=== PATIENT | male | born 1950 | race Caucasian/White ===

== ENCOUNTER 2022-03-24 09:07 | Outpatient (CLI) | payer MEDICARE, BC, SELFPAY ==
[2022-03-24 09:26] VITALS: BP 111/83; PULSE 65; RESP 18; TEMP 36.4; O2SAT 97
== END 2022-03-24 10:00 | disposition home or self-care (01) ==
LOC: INF 09:12
PROVIDERS: PCP Nurse Practitioner Family; Visit Provider Nurse Practitioner Family
DX: E78.5 Hyperlipidemia, unspecified (principal)
CPT/HCPCS: 96372; J1306

== ENCOUNTER 2022-09-28 13:01 | Outpatient (CLI) | payer MEDICARE, BC, SELFPAY ==
[2022-09-28 13:28] VITALS: BP 130/68; PULSE 77; RESP 18; TEMP 36.9; O2SAT 97
== END 2022-09-28 13:28 | disposition home or self-care (01) ==
LOC: INF 13:01
PROVIDERS: PCP Nurse Practitioner Family; Visit Provider Nurse Practitioner Family
DX: E78.5 Hyperlipidemia, unspecified (principal)
CPT/HCPCS: 96372; J1306

== ENCOUNTER 2023-03-31 12:43 | Outpatient (CLI) | payer MEDICARE, BC, SELFPAY ==
[2023-03-31] MEDS: INCLISIRAN SODIUM 284 MG/1.5 ML SYRINGE SQ (13:00)
[2023-03-31 13:05] VITALS: BP 119/59; PULSE 84; RESP 18; O2SAT 99
== END 2023-03-31 13:10 | disposition home or self-care (01) ==
LOC: INF 12:46
PROVIDERS: PCP Nurse Practitioner Family; Visit Provider Student in an Organized Health Care Education/Training Program
DX: E78.5 Hyperlipidemia, unspecified (principal)
CPT/HCPCS: 96372; J1306

== ENCOUNTER 2023-06-17 07:28 | Outpatient (CLI) | payer MEDICARE, BC, SELFPAY ==
--- NOTE | 2023-06-17 | CA_ITS ---
FINAL REPORT TECHNIQUE: Grayscale, color Doppler and duplex Doppler ultrasound of the kidneys, aorta and renal arteries was performed. Multiple velocities were measured. CLINICAL HISTORY: HTN,HLD,DM,CKD STAGE 3 COMPARISON: None FINDINGS: Aorta velocity: 91 cm/sec Right kidney: 13.6 cm. No evidence of hydronephrosis or mass. Right intrarenal RI: 0.73 Right renal artery velocity: 129 cm/sec. Right RAR (Renal artery-Aortic Ratio): 1.4 Left Kidney: 14.4 cm. No evidence of hydronephrosis or mass. Left intrarenal RI: 0.78 Left renal artery velocity: 153 cm/sec. Left RAR (Renal Artery-Aortic Ratio): 1.7 IMPRESSION: No evidence of significant renal artery stenosis. CT angiogram or postcontrast MR angiogram would be more sensitive for evaluation of possible renal artery stenosis. Reviewed, Interpreted and Dictated by Osmin Ziegler III, MD Transcribed by Sada Villanueva Authenticated and [facility]
--- NOTE | 2023-06-17 08:36 | US_ITS ---
FINAL REPORT CLINICAL HISTORY: BENIGN ESSESTIAL HYPRTENSION COMPARISON: None FINDINGS: RENAL ULTRASOUND: The right kidney measures 12.3 cm in length. There is no evidence of hydronephrosis or mass in the right kidney. The left kidney measures 13.6 cm in length. There is a hypoechoic focus measuring 1.1 cm in size that likely represents a renal cyst. There is a hyperechoic linear focus in the spleen, which may represent scar or calcification. IMPRESSION: 1.1 cm left renal cyst. Hyperechoic linear focus in the spleen, possibly scar or calcification. Reviewed, Interpreted and Dictated by Osmin Ziegler III, MD Transcribed by Sada Villanueva Authenticated and [facility]
== END 2023-06-17 23:59 | disposition home or self-care (01) ==
LOC: RT 07:29
PROVIDERS: PCP Nurse Practitioner Family; Visit Provider Internal Medicine Nephrology
DX: I10 Essential (primary) hypertension (principal); N18.31 Chronic kidney disease, stage 3a
CPT/HCPCS: 76770; 93976

== ENCOUNTER 2023-10-01 12:33 | Outpatient (CLI) | payer MEDICARE, BC, SELFPAY ==
[2023-10-01 12:50] VITALS: BP 105/49; PULSE 81; RESP 20; TEMP 36.8; O2SAT 98
[2023-10-01] MEDS: INCLISIRAN SODIUM 284 MG/1.5 ML SYRINGE SQ (12:50)
== END 2023-10-01 13:04 | disposition home or self-care (01) ==
LOC: INF 12:34
PROVIDERS: PCP Emergency Medicine; Visit Provider Emergency Medicine
DX: E78.5 Hyperlipidemia, unspecified (principal)
CPT/HCPCS: 96372; J1306

== ENCOUNTER 2024-04-14 10:54 | Outpatient (CLI) | payer MEDICARE, BC, SELFPAY ==
[2024-04-14] MEDS: INCLISIRAN SODIUM 284 MG/1.5 ML SYRINGE SUBCUT (11:15)
[2024-04-14 11:16] VITALS: BP 104/60; PULSE 69; RESP 18; TEMP 37.1; O2SAT 96
== END 2024-04-14 11:19 | disposition home or self-care (01) ==
LOC: INF 10:57
PROVIDERS: PCP Nurse Practitioner Family; Visit Provider Nurse Practitioner Family
DX: E78.5 Hyperlipidemia, unspecified (principal)
CPT/HCPCS: 96372; J1306

== ENCOUNTER 2024-10-13 10:40 | Outpatient (CLI) | payer MEDICARE, BC, SELFPAY ==
--- OUTSIDE RECORDS SUMMARY | 2024-10-13 10:44 | XMS_ITS | Encounter Summary ---
Author Organization Healthcare Address [address] [place] [address] Care Team Providers Care Structural Worker Name Role Phone Farhad Haynes FIRE PROTECTION ENGINEER Primary Care Provider + Encounter Details Date Type Department Care Team (Late st Contact Info) Description 10/13/2024 Orders Only [facility] [address] [place] [address] Sudeep Eller MD [address] [place] [id number] Social History Tobacco Use Types Packs/Day Years Used Date Smoking Tobacco: Never Assessed Sex and Gender Information Value Date Recorded Sex Assigned at Not on file Legal Sex Male 12:45 PM EDT Gender Identity Not on file Sexual Orientation Not on file documented as of this encounter Plan of Treatment Not on file documented as of this encounter Visit Diagnoses Not on filedocumented in this encounter Care Teams Structural Worker Relationship Specialty Start Date End Date Farhad Haynes APRN [address] [address] PCP - General 01/06/24 documented as of this encounter
--- OUTSIDE RECORDS SUMMARY | 2024-10-13 10:44 | XMS_ITS | Clinical Summary ---
Author Organization Healthcare Address [address] [place] [address] Care Team Providers Care Inseamer Name Role Phone Farhad Haynes DYNAMITE PACKING MACHINE FEEDER Primary Care Provider + Encounters Date Type Department Care Team Description 10/13/2024 Orders Only [facility] [address] [place] [address] Sudeep Eller MD from Last 3 Months Social History Tobacco Use Types Packs/Day Years Used Date Smoking Tobacco: Never Assessed Sex and Gender Information Value Date Recorded Sex Assigned at Not on file Legal Sex Male 12:45 PM EDT Gender Identity Not on file Sexual Orientation Not on file Plan of Treatment Not on file Insurance ANTH Care Teams Inseamer Relationship Specialty Start Date End Date Farhad Haynes APRN [address] [address] PCP - General 01/06/24
--- OUTSIDE RECORDS SUMMARY | 2024-10-13 10:44 | XMS_ITS | Clinical Summary ---
Author Organization [facility] Address [address] [place] [address] Care Team Providers Care Pulpwood Buyer Name Role Phone Farhad Haynes APRN Primary Care Provi halrey Allergies No known active allergies Medications amLODIPine (NORVASC) 5 MG tablet Take 1 tablet by mouth Every Evening. 2 Active cloNIDine (CATAPRES) 0.1 MG tablet TAKE 1 TABLET BY MOUTH EVERY DAY FOR BLOOD PRESSURE 90 DAY(S) 3 Active fenofibrate micronized (LOFIBRA) 67 MG capsule Take 1 capsule by mouth Daily. With a meal 3 Active metoclopramide (REGLAN) 5 MG tablet Take 1 tablet by mouth Every Evening. 2 Active metoprolol tartrate (LOPRESSOR) 100 MG tablet Take 1 tablet by mouth Every 12 (Twelve) Hours. 2 Active omeprazole (priLOSEC) 20 MG capsule Take 1 capsule by mouth Daily. 3 Active warfarin (COUMADIN) 5 MG tablet Take 1 tablet by mouth Every Evening. 3 Active glipizide (GLUCOTROL XL) 10 MG 24 hr tablet TAKE 1 TABLET BY MOUTH TWICE A DAY WITH MEALS FOR 90 DAYS 3 Active potassium chloride 10 MEQ CR tablet Take 1 tablet by mouth Daily. with food 3 Active aspirin 81 MG chewable tablet 1 {tablet} by oral route. Active Soliqua 100-33 UNT-MCG/ML solution pen-injector injection INJECT 30 UNITS SUBCUTANEOUSLY FIRST THING IN THE MORNING, 1 HOUR BEFORE ANYTHING BY MOUTH Active B-D UF III MINI PEN NEEDLES 31G X 5 MM misc 4 Active Risankizumab-r zaa (Skyrizi Pen) 150 MG/ML solution auto-injector Active Semaglutide,0. 25 or 0.5MG/DOS, (Ozempic, 0.25 or 0.5 MG/DOSE,) 2 MG/3ML solution pen-injector Inject 0.25 mg every week by subcutaneous route for 30 days. Active vitamin D (ERGOCALCIFERO L) 1.25 MG (18397 UT) capsule capsule Take 1 capsule by mouth 1 (One) Time Per Week. 4 Active furosemide (LASIX) 40 MG tablet Take 1 tablet by mouth Daily. 5 Active lisinopril (PRINIVIL,ZEST RIL) 20 MG tablet Take 1 tablet by mouth every night at bedtime. 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 But he is in chronic A-fib. He is on warfarin that is followed by PCP. Assessment & Plan (04/22/2022 10:40 PM EST): Patient is asymptomatic and rate controlled. He is on warfarin that is followed by PCP. Obstructive sleep apnea syndrome 04/22/2022 Assessment & Plan (05/07/2024 8:07 PM EST): Benefiting from PAP therapy. Plan to continue. Assessment & Plan (04/22/2022 10:41 PM EST): CPAP compliance report dated March 23, 2022 to April 21, 2022 downloaded and interpreted in clinic today showing patient uses machine 100% of the time uses it over 4 hours 100% of the time for an average use of 7 hours and 40 minutes his AirSense 11 AutoSet CPAP is set to 9 with an EPR of 3 and his AHI 0.7 showing excellent compliance and excellent control. Patient is benefiting from PAP therapy so we will plan to continue. Treating RIAN will likely benefit atrial fibrillation. Airflow, mask, machine are comfortable. Abnormal echocardiogram 04/22/2022 Assessment & Plan (04/22/2022 10:43 PM EST): May 09, 2020 echo reviewed. EF 55 to 60% left atrium moderately dilated, mild aortic valve sclerosis without stenosis, mild aortic regurgitation, aortic root mildly dilated at 3.8 cm. Echo obtained today, report not available yet. Advised patient we will call if there is any significant changes. 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 Psoriasis 03/31/2022 Resolved Problems Problem Noted Date Diagnosed Date Resolved Date Acute cystitis 05/05/2023 05/05/2023 Immunizations Immunization Administration Dates Next Due FLUAD TRI 65YR+ 12/26/2018,12/22/2017 Fluad Quad 65+ 12/28/2022 Fluzone >6mos 01/13/2016,12/04/2014 Fluzone High-Dose 65+YRS 12/24/2020,11/27/2016 Fluzone High-Dose 65+yrs 11/20/2021,12/05/2019 Hepatitis A 08/06/2018,01/18/2018 Influenza Seasonal Injectable 12/06/2013 Pneumococcal Conjugate 13-Valent (PCV13) 017 Pneumococcal Polysaccharide (PPSV23) 12/24/2020, 07/09/2015 TD Preservative Free (Tenivac) 07/27/2016,2003 Zostavax 04/20/2012 Family History Medical History Relation Name Comments No Known Problems Brother Cancer Father Aneurysm Mother No Known Problems Sister 2 Relation Name Status Comments Brother Alive Father (Age 63) Mother Sister 2 Alive Social History Tobacco Use Types Packs/Day Years Used Date Smoking Tobacco: Former Cigarettes 1 40 0 10/1960 - 10/2000 Passive Smoke Exposure: Past Smokeless Tobacco: Never Tobacco Cessation:Counseling Given: No Alcohol Use Standard Drinks/Week Comments Defer 0 (1 standard drink = 0.6 oz pur e alcohol) Sex and Gender Information Value Date Recorded Sex Assigned at Not on file Legal Sex Male 4:26 PM EST Gender Identity Not on file Sexual Orientation Not on file Last Filed Vital Signs Vital Sign Reading Time Taken Comments Blood Pressure 120/80 05/02/2024 9:15 AM EST Pulse 80 05/02/2024 9:15 AM EST Temperature - - Respiratory Rate - - Oxygen Saturation 97% 05/02/2024 9:15 AM EST Inhaled Oxygen Concentration - - Weight 120 kg (264 lb) 05/02/2024 9:15 AM EST Height 177.8 cm (5' 10 ) 05/02/2024 9:15 AM EST Body Mass Index 37.88 05/02/2024 9:15 AM EST Plan of Treatment Upcoming Encounters Date Type Department Care Team (Late st Contact Info) Description 05/01/2025 9:30 AM EST Office Visit [facility] [address] [place] [address] Mora Beckman APRN [address] [place] [address] Health Maintenance Due Date Last Done Comments LIPID PANEL 1949 DIABETIC EYE EXAM 10/15/1959 DIABETIC FOOT EXAM 10/15/1959 URINE MICROALBUMIN-CREATININ E RATIO (uACR) 10/15/1959 COLOGUARD 1994 COLON CANCER SCREENING 5 YEA R SIGMOIDOSCOPY 1994 COLONOSCOPY 1994 COLORECTAL CANCER SCREENING 1994 CT COLONOGRAPHY 1994 FECAL OCCULT BLOOD TEST 1994 FIT Testing (1 year) 1994 ZOSTER VACCINE (2 of 3) 06/15/2012 04/20/2012 AAA SCREEN ONCE 2014 ANNUAL WELLNESS VISIT 04/02/2022 HEMOGLOBIN A1C 04/02/2022 HEPATITIS C SCREENING 04/02/2022 COVID-19 Vaccine (8 - 2023-2 5 season) 2024 11/10/2023, 12/28/2022, 11/20/2021, Additional history exists INFLUENZA VACCINE 12/06/2024 11/10/2023, , 11/20/2021, Additional history exists TDAP/TD VACCINES (3 - Tdap) 07/27/2026 07/27/2016, 0 10/05/2003 Pneumococcal Vaccine 50+ Completed 021, 07/27/2016, 07/09/2015 Insurance MEDICARE A & B Member Subscriber Plan / Payer (Ef fective 2014-Present) Name:Andres Torrez Member ID:[id number] Relation to Subscriber:Self Name:Andres Torrez Subscriber ID:[id number] Payer ID:[id number] Group ID:Not on file Type:Not on file Address: [address] Care Teams Pulpwood Buyer Relationship Specialty Start Date End Date Farhad Haynes APRN [address] [facility] [place] [address] PCP - General Nurse Practitioner 04/22/22
[2024-10-13 10:45] VITALS: BP 106/72; PULSE 71; RESP 18; TEMP 37.1; O2SAT 97
[2024-10-13] MEDS: INCLISIRAN SODIUM 284 MG/1.5 ML SYRINGE SUBCUT (10:45)
== END 2024-10-13 11:00 | disposition home or self-care (01) ==
LOC: INF 10:42
PROVIDERS: PCP Nurse Practitioner Family; Visit Provider Nurse Practitioner Family
DX: Z01.89 Encounter for other specified special examinations (principal)
CPT/HCPCS: 96372; J1306